=== PATIENT | male | born 1940 | race Caucasian/White ===

== ENCOUNTER 2024-05-10 10:56 | Emergency (ER) | payer OTHER ==
[~2024-05-10] VITALS: Ht 172.7 cm; Wt 78.6 kg
[~2024-05-10 10:56] MED LIST: CYCL-1 PO
[2024-05-10 11:24] LABS: BASOPHILS # (AUTO) 0.1 X10'3 (0-0.2); BASOPHILS % (AUTO) 0.9 % (0-1); EOSINOPHILS # (AUTO) 0.1 X10'3 (0-0.9); EOSINOPHILS % (AUTO) 1.4 % (0-6); HEMATOCRIT 46.4 % (42.0-52.0); HEMOGLOBIN 16.1 g/dl (14.0-17.9); LYMPHOCYTES # (AUTO) 1.6 X10'3 (1.1-4.8); LYMPHOCYTES % (AUTO) 18.3 % (21-51); MEAN CORPUSCULAR HEMOGLOBIN 30.8 PG (27.0-31.0); MEAN CORPUSCULAR HGB CONC 34.6 g/dL (33.0-36.5); MEAN CORPUSCULAR VOLUME 88.8 FL (78-98); MEAN PLATELET VOLUME 8.7 FL (7.4-10.4); MONOCYTES # (AUTO) 0.6 X10'3 (0-0.9); MONOCYTES % (AUTO) 7.3 % (2-12); NEUTROPHILS # (AUTO) 6.4 X10'3 (1.8-7.7); NEUTROPHILS % (AUTO) 72.1 % (42-75); PLATELET COUNT 237 X10'3 (140-440); RED BLOOD COUNT 5.23 X10'6 (4.70-6.10); RED CELL DISTRIBUTION WIDTH 14.1 % (11.5-14.5); WHITE BLOOD COUNT 8.9 X10'3 (4.5-11.0)
[2024-05-10 11:43] LABS: ALBUMIN 3.9 G/DL (3.4-5.0); ANION GAP 10 (8-16); ASPARTATE AMINO TRANSFERASE 21 U/L (10-37); BILIRUBIN,TOTAL 0.7 MG/DL (0.1-1.0); BLOOD UREA NITROGEN 26 MG/DL (7-18); CALCIUM 9.2 MG/DL (8.5-10.1); CHLORIDE 105 MMOL/L (99-107); CREATININE 1.24 MG/DL (0.60-1.10); GLUCOSE 103 MG/DL (70-104); POTASSIUM 3.6 MMOL/L (3.5-5.1); SODIUM 139 MMOL/L (135-145); TOTAL CARBON DIOXIDE 23.9 MMOL/L (24-32); TOTAL PROTEIN 7.7 G/DL (6.4-8.2); eCRCL 45 ML/MIN; eGFR 56 ML/MIN
[2024-05-10] MEDS: normal saline 1000ml 1,000 ML IV ONE (11:43)
[2024-05-10 11:44] LABS: ALANINE AMINOTRANSFERASE 14 U/L (12-78); ALKALINE PHOSPHATASE 91 IU/L (46-116); LIPASE 44 U/L (16-77)
[2024-05-10] MEDS ORDERED: FLO0.4C PO ×2 (11:46→15:02)
[2024-05-10] MEDS: morphine 4 MG/ML inj SYRINge IV ONE (11:51)
[2024-05-10] MEDS: ondansetron/PF 4mg/2ml inj IV ONE (11:51)
[2024-05-10] MEDS ORDERED: iohexol 300mg/ml 100ml inj. ONE (12:14)
[2024-05-10] MEDS: ketorolac trometh. 30mg/ml inj. IV ONE (12:17)
[2024-05-10 13:38] LABS: BILIRUBIN,URINE NEGATIVE (Neg); CLARITY,URINE CLEAR (Clear); COLOR,URINE YELLOW (Yellow); GLUCOSE, URINE NEGATIVE (Neg); KETONES,URINE NEGATIVE (Neg); LEUKOCYTE ESTERASE ,URINE SMALL (Neg); NITRITES, URINE NEGATIVE (Neg); OCCULT BLOOD,URINE TRACE-INTACT (Neg); PROTEIN,URINE NEGATIVE (Neg); UROBILINOGEN,URINE 0.2 E.U/dL (0.2-1.0)
[2024-05-10 13:45] LABS: UA COLLECTION TYPE NON-SPECIFIED
[2024-05-10 13:50] LABS: BACTERIA,URINE NONE SEEN /HPF (Neg); RBC,URINE 0-2 /HPF (0-2); SQUAMOUS EPITHELIAL CELL,UR NONE SEEN /LPF (FEW); WBC,URINE 0-4 /HPF (0-4)
[2024-05-10 16:17] VITALS: BP 158/81; PULSE 58; RESP 16; TEMP 98.1; O2SAT 98
== END 2024-05-10 15:40 | disposition home or self-care (01) ==
LOC: ER 10:56
DX: N20.0 Calculus of kidney (principal); K80.80 Other cholelithiasis without obstruction; Z79.899 Other long term (current) drug therapy
CPT/HCPCS: 36415; 74177; 76700; 80053; 81001; 83690; 85025; 87088; 96361; 96374; 99285; J1885; J7030; Q9967

== ENCOUNTER 2024-07-15 15:35 | Emergency (ER) | payer OTHER ==
[~2024-07-15] VITALS: Ht 175.3 cm; Wt 87.7 kg
[~2024-07-15 15:35] MED LIST changes: -CYCL-1 PO; +FLO0.4C PO
[2024-07-15 16:01] VITALS: TEMP 97.9
[2024-07-15 16:34] LABS: BASOPHILS % (AUTO) 0.3 % (0-1); EOSINOPHILS % (AUTO) 0.1 % (0-6); HEMATOCRIT 46.8 % (42.0-52.0); HEMOGLOBIN 15.8 g/dl (14.0-17.9); LYMPHOCYTES # (AUTO) 0.9 X10'3 (1.1-4.8); LYMPHOCYTES % (AUTO) 6.5 % (21-51); MEAN CORPUSCULAR HEMOGLOBIN 30.1 PG (27.0-31.0); MEAN CORPUSCULAR HGB CONC 33.7 g/dL (33.0-36.5); MEAN CORPUSCULAR VOLUME 89.3 FL (78-98); MEAN PLATELET VOLUME 8.6 FL (7.4-10.4); MONOCYTES # (AUTO) 0.7 X10'3 (0-0.9); MONOCYTES % (AUTO) 5.4 % (2-12); NEUTROPHILS # (AUTO) 11.9 X10'3 (1.8-7.7); NEUTROPHILS % (AUTO) 87.7 % (42-75); PLATELET COUNT 226 X10'3 (140-440); RED BLOOD COUNT 5.24 X10'6 (4.70-6.10); RED CELL DISTRIBUTION WIDTH 13.9 % (11.5-14.5); WHITE BLOOD COUNT 13.6 X10'3 (4.5-11.0)
[2024-07-15 16:48] LABS: APTT 25 SECONDS (22-32); PROTHROMBIN TIME 10.6 SECONDS (9.0-12.0)
[2024-07-15 16:49] LABS: ALANINE AMINOTRANSFERASE 14 U/L (12-78); ALBUMIN 3.7 G/DL (3.4-5.0); ALKALINE PHOSPHATASE 87 IU/L (46-116); ANION GAP 9 (8-16); ASPARTATE AMINO TRANSFERASE 24 U/L (10-37); BILIRUBIN,TOTAL 0.6 MG/DL (0.1-1.0); BLOOD UREA NITROGEN 30 MG/DL (7-18); BUN/CREATININE RATIO 17.4 (10.0-20.0); CALCIUM 8.7 MG/DL (8.5-10.1); CHLORIDE 105 MMOL/L (99-107); CREATININE 1.72 MG/DL (0.60-1.10); GLUCOSE 122 MG/DL (70-104); LIPASE 29 U/L (16-77); POTASSIUM 4.2 MMOL/L (3.5-5.1); SODIUM 138 MMOL/L (135-145); TOTAL CARBON DIOXIDE 24.2 MMOL/L (24-32); TOTAL PROTEIN 7.3 G/DL (6.4-8.2); eCRCL 34 ML/MIN; eGFR 38 ML/MIN
[2024-07-15] MEDS ORDERED: HYDR-3972 PO (19:21)
[2024-07-15] MEDS: HYDROcodone/acetaminophen 10/325mg tab PO ONE (19:42)
[2024-07-15] MEDS: ketorolac trometh 30MG/ML vial 30 MG/ML VIAL IV ONE (19:44)
[2024-07-15 19:55] VITALS: BP 168/90; PULSE 57; RESP 16; O2SAT 97
== END 2024-07-15 19:57 | disposition home or self-care (01) ==
LOC: ER 15:36
DX: N20.0 Calculus of kidney (principal); N23 Unspecified renal colic; Z79.899 Other long term (current) drug therapy
CPT/HCPCS: 36415; 74176; 80053; 83690; 85025; 85610; 85730; 96374; 99285; J1885; J7030